=== PATIENT | male | born 1955 | race Two or more races ===

== ENCOUNTER 2017-09-16 09:31 | Emergency (ER) | payer OTHER ==
[~2017-09-16] VITALS: Ht 170.2 cm; Wt 86.2 kg
[2017-09-16 09:43] VITALS: BP 135/89
--- NOTE | 2017-09-16 09:55 | Emergency Room Report ---
History of Present Illness General Chief Complaint: Back Pain-No Injury Source: Patient Present Illness HPI Patient is a 62-year-old male who presented after increased left sided back pain. Patient had been noted to have onset approximately 2 weeks prior to arrival. Patient had been taking ibuprofen with the initial relief pain. Patient reports having increased pain with movement. The patient denies any specific movement that initiates pain. He denies any numbness or weakness to his extremities. The patient reports having prior episodic back pain. He denies any recent trauma. The patient reports urinating normally. He denies any fever.The patient denies any changes respiration. He denies any abdominal pain. Allergies: Coded Allergies: No Known Allergies (Unverified , 09/16/17) Patient History Past Medical History: see triage record Past Surgical History: none Reviewed Nursing Documentation: PMH: Agreed; PSxH: Agreed Nursing Documentation-PMH Past Medical History: No History, Except For Review of Systems All Other Systems: negative except mentioned in HPI Physical Exam Vital Signs Date Time Temp Pulse Resp B/P (MAP) Pulse Ox O2 Delivery O2 Flow Rate FiO2 09/16/17 09:33 97.9 86 16 135/89 96 Room Air 97.9 Sp02 EP Interpretation: reviewed, normal General Appearance: normal inspection, well appearing, no apparent distress, alert, GCS 15, non-toxic Head: atraumatic ENT: normal ENT inspection, hearing grossly normal, normal voice Neck: normal inspection, full range of motion, supple, no bony tend Respiratory: normal inspection, lungs clear, normal breath sounds, no respiratory distress, no retraction, no wheezing Cardiovascular #1: regular rate, rhythm, no edema Gastrointestinal: normal inspection, normal bowel sounds, non tender, soft, no guarding, no hernia Genitourinary: no CVA tenderness Musculoskeletal: normal inspection, decreased range of motion, other - no spinous tenderness Neurologic: normal inspection, alert, oriented x3, responsive, 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 Differential diagnosis included but was not limited to herniated disc, cauda equina syndrome, abdominal aortic aneurysm, perforated ulcer, spinal epidural abscess, spinal stenosis, lumbar fracture, metastatic lesion, pyelonephritis. Because of complexity of patient's case laboratory testing and imaging studies were ordered. Because the patient's age the CT imaging was ordered.CT imaging of the lumbar spine read by radiology showed evidence of the lumbar disc herniation.The patient was additionally noted to have moderate spinal stenosis. The patient is advised follow-up with the primary care for back surgery referral. Patient is given prescription for pain medications.The patient was additionally noted to have some recent upper respiratory symptoms including cough. Patient is given prescription for cough medications.The patient is advised to follow up with primary care doctor in 1-2 days. Patient is advised to return if any worsening condition or if any changes in status that are concerning. This report is dictated with [employer] comprehensive ophthalmologist software which may occasionally lead to discrepancies related to use of this software. Labs Test 09/16/17 10:05 Urine Color Pale yellow Urine Appearance Clear Urine pH 5 (4.5-8.0) Urine Specific [place] 1.025 (1.005-1.035) Urine Protein Negative (NEGATIVE) Urine Glucose (UA) 4+ (NEGATIVE) Urine Ketones Negative (NEGATIVE) Urine Occult Blood 1+ (NEGATIVE) Urine Nitrite Negative (NEGATIVE) Urine Bilirubin Negative (NEGATIVE) Urine Urobilinogen Normal MG/DL (0.0-1.0) Urine Leukocyte Esterase Negative (NEGATIVE) Urine RBC 0-2 /HPF (0 - 0) Urine WBC 0-2 /HPF (0 - 0) Urine Squamous Epithelial Cells Occasional /LPF Urine Bacteria Occasional /HPF (NONE) Urine Mucus Occasional /LPF Last Vital Signs Date Time Temp Pulse Resp B/P (MAP) Pulse Ox O2 Delivery O2 Flow Rate FiO2 09/16/17 09:43 97.9 16 135/89 96 Room Air 97.9 09/16/17 09:33 86 Status: improved Disposition: HOME, SELF-CARE Condition: Stable Scripts Guaifenesin (Guaifenesin) 100 Mg/5 Ml Liquid 200 MG ORAL Q6H, #120 ML 0 Refills Prov: Osiel Adams MD 09/16/17 Prednisone* (PREDNISONE*) 20 Mg Tablet 40 MG ORAL DAILY, #10 TAB Prov: Osiel Adams MD 09/16/17 Lidocaine (Lidocaine) 1 Each Adh..patch 700 MG TP DAILY, #30 PATCH Prov: Osiel Adams MD 09/16/17 Osiel Adams MD Sep 16, 2017 09:55
[2017-09-16] MEDS ORDERED: Acetaminophen 500mg (ES) tab ORAL ONE (10:00)
[2017-09-16 10:24] LABS: APPEARANCE,URINE CLEAR; BILIRUBIN, URINE NEGATIVE (NEGATIVE); COLOR,URINE PALE YELLOW; GLUCOSE, URINE (UA) 4+ (NEGATIVE); KETONES,URINE NEGATIVE (NEGATIVE); LEUKOCYTE ESTERASE ,URINE NEGATIVE (NEGATIVE); NITRITE,URINE NEGATIVE (NEGATIVE); PH,URINE 5 (4.5-8.0); PROTEIN,URINE NEGATIVE (NEGATIVE); UROBILINOGEN,URINE NORMAL MG/DL (0.0-1.0)
--- NOTE | 2017-09-16 11:01 | Diagnostic Imaging Report ---
INDICATION: Pain TECHNIQUE: Multiple, contiguous axial cuts of the lumbar spine are obtained. Sagittal and coronal reformats are available. No IV contrast given. One or more of the following dose reduction techniques were used: automated exposure control, adjustment of the mA and/or kV according to patient size, use of iterative reconstruction technique. COMPARISON: None FINDINGS: No fracture or subluxation is identified. Tiny anterior osteophytes. The vertebral body heights and disc spaces are preserved. Bone mineralization is within normal limits. 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 2-3 mm diffuse disc bulges from L3-L4 through L5-S1 causing moderate spinal canal stenosis with moderate bilateral neural foraminal stenosis. No prevertebral soft tissue thickening. Atherosclerotic vascular disease. IMPRESSION: 1. No fracture or subluxation is identified. 2. 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 2-3 mm diffuse disc bulges from L3-L4 through L5-S1 causing moderate spinal canal stenosis with moderate bilateral neural foraminal stenosis. CTDI: 16.07 mGy DLP: 433.02 mGycm
[2017-09-16] MEDS ORDERED: PREDNISONE20 MG ORAL (11:32)
[2017-09-16] MEDS ORDERED: LIDOCAINE700 M1 TP (11:32)
[2017-09-16 12:11] VITALS: BP 141/87
[2017-09-16] MEDS ORDERED: ROBITUSSIN100 MG/52 ORAL (12:11)
[2017-09-16 12:14] VITALS: BP 141/87
== END 2017-09-16 12:15 | disposition home or self-care (01) ==
LOC: EMR 09:50
DX: M48.061 Spinal stenosis, lumbar region without neurogenic claudication (principal); M54.9 Dorsalgia, unspecified
CPT/HCPCS: 72131; 81001; 99283